=== PATIENT | male | born 1965 | race Caucasian/White ===

== ENCOUNTER → 2021-04-23 | Day surgery (SDC) | payer BC ==
[~2021-04-23] MED LIST: ASPIRIN81 MG PO; BUPIVACAINE HCL 0.5% INJ 30 ML VIAL INJ ONE; FAMOTIDINE20 MG PO; HYDROCHLOROTH12.5 MG PO; LIDOCAINE 1% W/EPINEPHRINE 20 ML VIAL ONE; MULTI-VITAMIN1 EACH PO; SODIUM CHLORIDE 0.9% 50ML 100 ML ONE; TESTOSTERO100 MG/1 M IM
[2021-04-23 08:33] LABS: ANION GAP 11.9 mmol/L (8-16); CALCIUM 9.2 mg/dL (8.4-10.2); CREATININE, SERUM 0.72 mg/dL (0.72-1.25); POTASSIUM 3.9 mmol/L (3.5-5.1)
[2021-04-23 12:10] VITALS: BP 112/85
== END | disposition home or self-care (01) ==
LOC: OR 07:10
PROVIDERS: ATTEND Orthopaedic Surgery
DX: S83.231A Complex tear of medial meniscus, current injury, right knee, initial encounter (principal); S83.281A Other tear of lateral meniscus, current injury, right knee, initial encounter; M22.41 Chondromalacia patellae, right knee; D75.89 Other specified diseases of blood and blood-forming organs; M67.51 Plica syndrome, right knee; K21.9 Gastro-esophageal reflux disease without esophagitis; N20.0 Calculus of kidney; I10 Essential (primary) hypertension; F17.210 Nicotine dependence, cigarettes, uncomplicated; X58.XXXA Exposure to other specified factors, initial encounter; Z01.810 Encounter for preprocedural cardiovascular examination; Z79.82 Long term (current) use of aspirin; Z86.16 Personal history of COVID-19
CPT/HCPCS: 27599; 29879; 29880; 36415; 80048; 93005; J0690; 76000